=== PATIENT | male | born 1965 | race Two or more races ===

== ENCOUNTER 2018-02-08 03:03 | Emergency (ER) | payer SELFPAY ==
[~2018-02-08] VITALS: Ht 167.6 cm; Wt 79.4 kg
[2018-02-08 02:50] VITALS: BP 155/102
[2018-02-08] MEDS ORDERED: Norco 5mg/325mg tab ORAL ONE (03:15)
[2018-02-08] MEDS ORDERED: Tetanus/Diptheria/Pertussis Vaccine 0.5ml Syr IM ONE (03:15)
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
[2018-02-08] MEDS ORDERED: Bacitracin Oint UD TOPIC ONE ×2 (05:08→05:15)
[2018-02-08 05:15] VITALS: BP 141/87
[2018-02-08] MEDS ORDERED: CEPHALEXIN500 MG ORAL (05:15)
[2018-02-08] MEDS ORDERED: HYDROCODON-ACE1 EA15 ORAL (05:15)
[2018-02-08] MEDS ORDERED: IBUPROFEN600 MG ORAL (05:15)
[2018-02-08 05:22] VITALS: BP 141/87
--- NOTE | 2018-02-08 08:42 | Diagnostic Imaging Report ---
Indication: Trauma Technique: Continuous helical CT scanning of the head was performed utilizing automated exposure control without intravenous contrast material. Axial and coronal reconstructions were obtained. Comparison: None CT dose: Total DLP 1333.42 mGycm; CTDI vol 70.38 mGy Findings: There is no acute intracranial hemorrhage, mass effect or cortical edema. The ventricles, cisterns and sulci are within normal limits for age. Visualized mastoid air cells and paranasal sinuses are unremarkable. There is right high parietal soft tissue swelling/small scalp hematoma. Correlate with physical exam to assess for laceration. No depressed calvarial fracture. IMPRESSION: No evidence of acute intracranial hemorrhage, mass effect or cortical edema. Right high parietal scalp soft tissue swelling/hematoma. Correlate with physical exam to assess for possible laceration in this region. No depressed calvarial fracture. This corresponds with the statrad preliminary report. The CT scanner at [facility] is accredited by the [employer] and the scans are performed using protocols designed to limit radiation exposure to as low as reasonably achievable to attain images of sufficient resolution adequate for diagnostic evaluation.
--- NOTE | 2018-02-08 08:47 | Diagnostic Imaging Report ---
Indication: Pain status post trauma Technique: XRAY Fingers 2-3v R Comparison: None Findings: There is an acute, mildly comminuted fracture of the tuft of the second distal phalanx. Fracture line may extend to the articular surface of the distal interphalangeal joint. There is some overlying soft tissue swelling. No additional acute fracture identified. No radiopaque foreign body Impression: Acute fracture of the tuft of the second distal phalanx as above. This corresponds with the preliminary interpretation of the treating ER clinician, as documented in the electronic medical record.
== END 2018-02-08 05:22 | disposition home or self-care (01) ==
LOC: EDBD 03:03 → EMR 03:30
DX: S01.01XA Laceration without foreign body of scalp, initial encounter (principal); S60.410A Abrasion of right index finger, initial encounter; Y00.XXXA Assault by blunt object, initial encounter; Y93.89 Activity, other specified; Y92.89 Other specified places as the place of occurrence of the external cause; Z23 Encounter for immunization
CPT/HCPCS: 70450; 90471; 90715; 99284